=== PATIENT | female | born 1990 | race Caucasian/White ===

== ENCOUNTER 2017-12-18 18:50 | Emergency (ER) | payer OTHER ==
[~2017-12-18] VITALS: Ht 162.6 cm; Wt 57.2 kg
[~2017-12-18 18:50] MED LIST: CELEXA40 MG PO; KLONOPIN0.5 M1 PO; LEXAPRO10 MG PO; REMERON15 MG PO; RISPERDAL2 MG PO; SUBOXONE 8 M1 TABLET SL
[2017-12-18 19:20] LABS: HEMATOCRIT 36.3 % (36.0-46.0); HEMOGLOBIN 12.8 G/DL (11.9-15.5); MCH 32.5 PG (29.0-34.0); MCHC 35.3 G/DL (30.0-36.0); MCV 92.1 FL (83-99); PLATELET COUNT 216 K/uL (156-360); RBC DIS.WIDTH-CV 11.7 % (11.8-14.6); RBC DIS.WIDTH-SD 39.7 % (39-53); RED BLOOD COUNT 3.94 M/uL (3.80-5.20); WHITE BLOOD COUNT 8.4 K/uL (4.1-10.2)
[2017-12-18 19:58] LABS: ALBUMIN 4.7 g/dL (3.2-4.8); CHLORIDE 105 mEq/L (99-109); SODIUM 138 mEq/L (136-147)
[2017-12-18 20:00] LABS: GLUCOSE 123 mg/dL (70-99)
[2017-12-18 20:01] LABS: TOTAL PROTEIN 7.6 g/dL (6.4-8.3)
[2017-12-18 20:02] LABS: TOTAL BILIRUBIN 0.2 mg/dL (0.0-1.0)
[2017-12-18 20:04] LABS: ALKALINE PHOSPHATASE 54 IU/L (3-129); CREATININE 0.7 mg/dL (0.6-1.3); GFR ESTIMATE (CALCULATED) > 59 mL/min/
[2017-12-18 20:05] LABS: UREA NITROGEN (BUN) 9 mg/dL (9-23)
[2017-12-18 20:06] LABS: AST (GOT) 15 IU/L (2-34)
[2017-12-18 20:07] LABS: ALT (GPT) 13 IU/L (3-49)
[2017-12-18 20:18] LABS: APPEARANCE SL.HAZY ((CLEAR)); BILIRUBIN NEGATIVE; BLOOD MODERATE; COLOR YELLOW ((YELLOW)); GLUCOSE (STRIP) NEGATIVE; KETONES NEGATIVE; LEUKOCYTES NEGATIVE; NITRITE NEGATIVE; PROTEIN (STRIP) NEGATIVE; SPECIFIC GRAVITY 1.025 (1.000-1.030)
[2017-12-18 20:30] LABS: QUANTITATIVE HCG 65630.3 MIU/ML
[2017-12-18 20:36] LABS: BACTERIA NONE SEEN /HPF; EPITHELIAL CELLS 2+ /HPF; MUCUS TRACE /LPF; RED BLOOD CELLS 0-5 /HPF (0-5); UCUL ADDED? NO; WHITE BLOOD CELLS 0-5 /HPF (0-5)
[2017-12-18 21:09] VITALS: BP 137/93
== END 2017-12-18 21:09 | disposition home or self-care (01) ==
LOC: EME 18:50
DX: O20.9 Hemorrhage in early pregnancy, unspecified (principal); Z3A.01 Less than 8 weeks gestation of pregnancy; O99.341 Other mental disorders complicating pregnancy, first trimester; F41.9 Anxiety disorder, unspecified; F43.10 Post-traumatic stress disorder, unspecified; O99.331 Smoking (tobacco) complicating pregnancy, first trimester; F17.200 Nicotine dependence, unspecified, uncomplicated
CPT/HCPCS: 76801; 80053; 81003; 84702; 85027; 99281; 99285